=== PATIENT | female | born 1950 | race Caucasian/White ===

== ENCOUNTER → 2023-05-26 09:29 | Outpatient (REF) | payer MEDICARE, OTHER, SELFPAY | LOC: RAD 09:29 | PROVIDERS: ATTENDING PHYSICIAN Student in an Organized Health Care Education/Training Program; FAMILY PHYSICIAN Family Medicine | DX: N18.30 Chronic kidney disease, stage 3 unspecified (principal) | CPT/HCPCS: 76770 ==